=== PATIENT | female | born 1945 | race Caucasian/White ===

== ENCOUNTER 2020-04-23 17:51 | Emergency (ER) | payer MEDICARE, OTHER ==
[2020-04-23 19:00] LABS: Absolute Neutrophil Ct (ANC) 1.82 (1.4-6.9); BASOPHIL % 0.5 % (0.0-0.4); Basophil (Absolute #) 0.02 (0-0.4); Eosinophil % 4.8 % (0.00-5.0); Hematocrit 38.8 % (35-47); Hemoglobin 12.4 gm/dl (12.0-16.0); Lymphocyte (Absolute #) 1.73 (1.0-4.6); Lymphocytes % 41.1 % (24.0-44.0); Mean Cell Volume 94.6 fl (78-100); Mean Corpuscular Hemoglobin 30.2 pg (26-32); Mean Platelet Volume 11.2 fl (7.5-11.0); Monocyte (Absolute #) 0.44 (0.0-1.3); Monocytes % 10.5 % (0.0-12.0); Neutrophil % 43.1 % (36.0-66.0); Platelet Count 152 K/mm3 (150-450); Red Cell Distribution Width 12.5 % (11.5-14.0); White Blood Count 4.2 K/mm3 (4.0-10.5)
[2020-04-23 19:02] LABS: INR 1.1 (0.8-3.0); PROTIME 12.4 SECONDS (9.95-12.35)
[2020-04-23 19:04] LABS: PTT 29.1 SECONDS (25.3-37.0)
[2020-04-23 19:14] LABS: ALBUMIN 3.8 g/dL (3.5-5.0); ALKALINE PHOSPHATASE 76 U/L (38-126); ANION GAP 11.4 MEQ/L (5-15); BLOOD UREA NITROGEN 18 mg/dL (7-17); CHLORIDE 108 mmol/L (98-107); Calcium 9.2 mg/dL (8.4-10.2); Carbon Dioxide 24 mmol/L (22-30); Creatinine 1 0.86 mg/dL (0.52-1.04); EST GLOMERULAR FILTRATION RATE > 60.0 ML/MIN; Glucose 128 mg/dL (74-106); NT PRO BNP 156 pg/mL (0-1800); Potassium 3.9 mmol/L (3.5-5.1); SGOT/AST 28 U/L (14-36); SGPT/ALT 22 U/L (0-35); SODIUM 139 mmol/L (137-145); Total Protein 6.5 g/dL (6.3-8.2)
--- NOTE | 2020-04-23 19:29 | ERPHSYRPT ---
- History of Present Illness Source: patient Patient Subjective Stated Complaint: Abnormal labs Triage Nursing Assessment: Patient ambulated back to ED and transferred self to bed. Patient A+O X3. Patient's skin pink, warm and dry. Patient states she was called by Dr. Campbell due to elevated D Dimer. Patient denies pain or discomfort. Patient states she has been SOB for the past 3 years for unknown reason. Patient had recent blood work today and was told to come to ED for elevated D Dimer. lungs clear a/p valerie. Physician History: 74 yo wf sent to the ER by Dr. Campbell for CTA of chest after +DD today. Pt has a h/o DUE x2-3 years and has been worked up by pulmonology/cardiology for this problem. She has had a R MRM and L lumpectomy w radiation/chemo for breast Ca and has been getting dyspneic since her treatment. Pt had an ECHO today and has an appointment to see her superintendent pressure in AM. She denies cough/fever/CP/N/V/diaphoresis. Timing/Duration: other (2-3 yrs) Activities at Onset: activity Severity of Dyspnea-Max: moderate Severity of Dyspnea-Current: mild Possible Cause: chronic episodes Modifying Factors: Improves With: exertion Associated Symptoms: No anxiety, No cough, No chest pain/discomfort, No edema, No fever, No insomnia, No loss of appetite, No lightheadedness, No wheezing, No weakness, No ankle swelling, No chills, No hemoptysis, No calf pain, No dizziness, No heaviness, No heart racing, No lightheadedness, No leg swelling, No muscle spasms feet, No muscle spasms hands, No painful breathing, No productive cough, No sweating, No tightness, No tingling face Allergies/Adverse Reactions: indomethacin [From Indocin] Allergy (Verified 04/23/20 17:55) nickel Allergy (Verified 04/23/20 17:55) Hx Influenza Vaccination/Date Given: Yes Hx Pneumococcal Vaccination/Date Given: Yes Immunizations Up to Date: Yes Travel Risk - International Travel Have you traveled outside of the country in past 3 weeks: No - Coronavirus Screening Are you exhibiting any of the following symptoms?: No Close contact with a COVID-19 positive Pt in past 14-21 Days: No - Review of Systems Constitutional: No Symptoms Eyes: No Symptoms Ears, Nose, & Throat: No Symptoms Respiratory: No Symptoms, Dyspnea on Exertion (SCOTT) Cardiac: No Symptoms Abdominal/Gastrointestinal: No Symptoms Genitourinary Symptoms: No Symptoms Musculoskeletal: No Symptoms Skin: No Symptoms Neurological: No Symptoms Psychological: Suicidal Ideations Endocrine: No Symptoms Hematologic/Lymphatic: No Symptoms Immunological/Allergic: No Symptoms - Past Medical History Neurological History: No Pertinent History Cardiac History: Hypertension Respiratory History: Asthma, Bronchitis, COPD, Pneumonia Musculoskeletal History: Osteoarthritis Other Medical History: Hx of breast CA - Past Surgical History Past Surgical History: Yes Neuro Surgical History: No Pertinent History Cardiac: No Pertinent History Respiratory: No Pertinent History Gastrointestinal: Cholecystectomy Musculoskeletal: Orthopedic Surgery Female Surgical History: Tubal Ligation, Mastectomy, Lumpectomy Other Surgical History: Right sided masectomy, lumpectomy on left side, back and neck surgery - Social History Smoking Status: Never smoker Exposure to second hand smoke: No Drug Use: none Patient Lives Alone: Yes Significant Family History: no pertinent family hx - Female History Hx Last Menstrual Period: menopausal Hx Now: No - Nursing Vital Signs Nursing Vital Signs: Initial Vital Signs Temperature 97.8 F 04/23/20 17:56 Pulse Rate 66 04/23/20 17:56 Respiratory Rate 18 04/23/20 17:56 Blood Pressure 166/78 04/23/20 17:56 O2 Sat by Pulse Oximetry 98 04/23/20 17:56 Pain Scale Pain Intensity 0 - Physical Exam General Appearance: no apparent distress Eye Exam: PERRL/EOMI, eyes nml inspection Ears, Nose, Throat Exam: hearing grossly normal, normal ENT inspection, normal pharynx Neck Exam: normal inspection, non-tender, supple, full range of motion, No Brudzinski, No Kernig's, No meningismus, No carotid bruit Respiratory Exam: normal breath sounds, lungs clear, airway intact, No res piratory distress Cardiovascular/Chest Exam: normal heart sounds, regular rate/rhythm, normal peripheral pulses, No murmur Abdominal/Gastrointestinal Exam: soft, normal bowel sounds, No tenderness Rectal Exam: deferred Extremity Exam: non-tender, normal range of motion, normal inspection, normal capillary refill, no calf tenderness, no pedal edema Peripheral Pulses Exam: carotid (R): 2+, carotid (L): 2+ Neurologic Exam: alert, oriented x 3, cooperative, 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 as tested, normal mood/affect, nml cerebellar function, nml station & gait, sensation nml, No motor deficits, No sensory deficit Skin Exam: normal color, warm, dry, No rash Lymphatic Exam: No adenopathy SpO2 Interpretation: normal SpO2: 98 O2 Delivery: Room Air - Course EKG Interpreted by Me: RATE (NSR/R62/Prolonged QT-QTc/Non-specific T wave abnormalities/IRBBB) - CT Exams Chest CT Interpretation: Discussed w/radiologist (CTA of chest nothing acute) Ordered Tests: Active Orders 24 hr Category Date Time Status EKG-ER Only STAT Care 04/23/20 18:49 Completed CHEST WITH CONTRAST [CT] Stat Exams 04/23/20 18:50 Taken CBC W DIFF Stat Lab 04/23/20 18:57 Completed CMP Stat Lab 04/23/20 18:57 Completed NT PRO BNP Stat Lab 04/23/20 18:57 Completed PROTIME WITH INR Stat Lab 04/23/20 18:57 Completed PTT Stat Lab 04/23/20 18:57 Completed TROPONIN Q3H Lab 04/23/20 18:57 Completed TROPONIN Q3H Lab 04/23/20 22:00 Ordered Lab/Rad Data: Laboratory Result Diagrams 04/23/20 18:57 04/23/20 18:57 Laboratory Results 04/23/20 04/23/20 04/23/20 Range/Units 18:57 18:57 18:57 WBC (4.0-10.5) K/mm3 RBC (4.1-5.4) M/mm3 Hgb (12.0-16.0) gm/dl Hct (35-47) % MCV (78-100) fl MCH (26-32) pg MCHC (32-36) g/dl RDW (11.5-14.0) % Plt Count (150-450) K/mm3 MPV (7.5-11.0) fl Gran % (36.0-66.0) % Eos # (Auto) (0-0.5) Absolute Lymphs (auto) (1.0-4.6) Absolute Monos (auto) (0.0-1.3) Lymphocytes % (24.0-44.0) % Monocytes % (0.0-12.0) % Eosinophils % (0.00-5.0) % Basophils % (0.0-0.4) % Absolute Granulocytes (1.4-6.9) Basophils # (0-0.4) PT 12.4 H (9.95-12.35) SECONDS INR 1.10 (0.8-3.0) APTT 29.1 (25.3-37.0) SECONDS Sodium 139 (137-145) mmol/L Potassium 3.9 (3.5-5.1) mmol/L Chloride 108 H (98-107) mmol/L Carbon Dioxide 24 (22-30) mmol/L Anion Gap 11.4 (5-15) MEQ/L BUN 18 H (7-17) mg/dL Creatinine 0.86 (0.52-1.04) mg/dL Estimated GFR > 60.0 ML/MIN Glucose 128 H (74-106) mg/dL Calcium 9.2 (8.4-10.2) mg/dL Total Bilirubin 0.20 (0.2-1.3) mg/dL AST 28 (14-36) U/L ALT 22 (0-35) U/L Alkaline Phosphatase 76 (38-126) U/L Troponin I < 0.012 (0.000-0.034) ng/mL NT-Pro-B Natriuret Pep 156 (0-1800) pg/mL Serum Total Protein 6.5 (6.3-8.2) g/dL Albumin 3.8 (3.5-5.0) g/dL 04/23/20 Range/Units 18:57 WBC 4.2 (4.0-10.5) K/mm3 RBC 4.10 (4.1-5.4) M/mm3 Hgb 12.4 (12.0-16.0) gm/dl Hct 38.8 (35-47) % MCV 94.6 (78-100) fl MCH 30.2 (26-32) pg MCHC 32.0 (32-36) g/dl RDW 12.5 (11.5-14.0) % Plt Count 152 (150-450) K/mm3 MPV 11.2 H (7.5-11.0) fl Gran % 43.1 (36.0-66.0) % Eos # (Auto) 0.20 (0-0.5) Absolute Lymphs (auto) 1.73 (1.0-4.6) Absolute Monos (auto) 0.44 (0.0-1.3) Lymphocytes % 41.1 (24.0-44.0) % Monocytes % 10.5 (0.0-12.0) % Eosinophils % 4.8 (0.00-5.0) % Basophils % 0.5 (0.0-0.4) % Absolute Granulocytes 1.82 (1.4-6.9) Basophils # 0.02 (0-0.4) PT (9.95-12.35) SECONDS INR (0.8-3.0) APTT (25.3-37.0) SECONDS Sodium (137-145) mmol/L Potassium (3.5-5.1) mmol/L Chloride (98-107) mmol/L Carbon Dioxide (22-30) mmol/L Anion Gap (5-15) MEQ/L BUN (7-17) mg/dL Creatinine (0.52-1.04) mg/dL Estimated GFR ML/MIN Glucose (74-106) mg/dL Calcium (8.4-10.2) mg/dL Total Bilirubin (0.2-1.3) mg/dL AST (14-36) U/L ALT (0-35) U/L Alkaline Phosphatase (38-126) U/L Troponin I (0.000-0.034) ng/mL NT-Pro-B Natriuret Pep (0-1800) pg/mL Serum Total Protein (6.3-8.2) g/dL Albumin (3.5-5.0) g/dL - Progress Progress Note: 04/23/20 19:57 Pt has chronic dyspnea wo acute findings Counseled pt/family regarding: lab results, rad results - Departure Departure Disposition: Home Clinical Impression: Dyspnea Condition: Stable Critical Care Time: No Referrals: JEANETTE CAMPBELL DO [Primary Care Provider] - Instructions: Shortness of Breath (Dyspnea) (DC) Additional Instructions: Follow up with Dr. Campbell Return to ER for increasing shortness of breath or temperature greater than 100.5
[2020-04-23 19:48] VITALS: PULSE 61
[2020-04-23 20:06] VITALS: BP 159/83
[2020-04-23 20:41] VITALS: O2SAT 98
--- NOTE | 2020-04-24 09:40 | XRAY ---
Indication: Short of breath. Elevated d-dimer. Multiple contiguous axial images obtained through the chest using 80 cc Isovue 370 contrast and PE protocol. Comparison: None There is good opacification of the pulmonary arteries to include the lobar and segmental branches. No pulmonary embolus. Heart is borderline enlarged. Aorta is mildly arteriosclerotic without aneurysm/dissection. No pathologic mediastinal/hilar lymphadenopathy. 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 Collaterals eventually empty into the superior vena cava. The internal thoracic veins also demonstrates reflux of contrast into segment 2 of the liver. Lungs are inflated with scattered mild fibrosis/scarring bilaterally. No suspicious pulmonary mass/nodule, infiltrate, or effusion. Bony thorax intact with mild degenerative changes throughout the spine. There has been right mastectomy with a breast implant. Limited upper abdomen demonstrates cholecystectomy and hepatic/right renal cysts. Impression: 1. Negative pulmonary embolus. No acute cardiopulmonary abnormalities. 2. 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 3. Incidental right mastectomy with breast implant and hepatic/renal cysts. Comment: Brachycephalic vein occlusion not reported on my preliminary interpretation. I gave telephone report to Dr. Mast in the ER at 0931 hrs on April 24, 2020.
== END 2020-04-23 20:10 | disposition home or self-care (01) ==
LOC: ED 17:51
DX: R06.00 Dyspnea, unspecified (principal); I10 Essential (primary) hypertension; J44.9 Chronic obstructive pulmonary disease, unspecified
CPT/HCPCS: 36415; 71260; 80053; 83880; 84484; 85025; 85379; 85610; 85730; 93005; 93306; 99284

== ENCOUNTER 2020-09-23 08:51 | Day surgery (SDC) | payer MEDICARE, OTHER ==
[~2020-09-23 08:51] MED LIST: Lactated Ringers 1,000 ML IV SCH
[2020-09-23] MEDS ORDERED: Lactated Ringers 1,000 ML IV ONE (09:03)
[2020-09-23] MEDS ORDERED: DIPRIVAN 200 MG/20 ML IV ONE ×2 (10:56→11:05)
[2020-09-23] MEDS ORDERED: Xylocaine-Mpf 2% 5 Ml Vial ONE (11:05)
[2020-09-23 12:10] VITALS: BP 171/78; PULSE 65; O2SAT 93
--- NOTE | 2020-09-26 07:43 | OP ---
PROCEDURE DATE/TIME: 09/23/2020 1040 PREOPERATIVE DIAGNOSES: 1) Epigastric pain. 2) Reflux. 3) Hiatal hernia. 4) History of pancreatitis. POSTOPERATIVE DIAGNOSES: 1) Epigastric pain. 2) Reflux. 3) Hiatal hernia. 4) History of pancreatitis. 5) Mild gastritis. 6) Esophageal benign inlet path. 7) Second portion of duodenum mass. PROCEDURE: EGD with biopsies and tattoo. PROCEDURE PERFORMED BY: Angela Lowe M.D. ESTIMATED BLOOD LOSS: Minimal. ANESTHESIA: MAC. SPECIMENS: 1) Antral biopsy. 2) Distal esophagus biopsy. 3) Raised mass at D2 biopsy. COMPLICATIONS: None. HISTORY: This is a patient who presents with a history of pancreatitis, epigastric pain, reflux and hiatal hernia here for EGD. The patient was seen preoperatively. H&P reviewed with her and confirmed. DESCRIPTION OF PROCEDURE: She was then brought back to the endoscopy suite. She was laid in the left lateral decubitus position. A complete time out performed. The scope gently introduced into the mouth, oropharynx, down to the esophagus, stomach and duodenum. In the region of her second portion of the duodenum, there was a very small, raised lesion this was white, minimally raised only approximately 2 mm in size this was very definitively biopsied with a good specimen obtained and it was sent to pathology. The site looked hemostatic after biopsy. The biopsy itself almost completely removed the lesion. I did then place tattoo dye here to insure that we could re-identify the location pending the final pathology report. The tattoo was placed without difficulty. The scope was carefully withdrawn taking a good look at the remainder of the duodenum. There were no other masses in the duodenum. In the stomach the patient did have some mild gastritis. An antral biopsy was taken to rule out Helicobacter pylori this site looked hemostatic. On retroflex view she does have a small hiatal hernia as well which is visualized and consistent with her reflux symptoms. No mass in the stomach. The scope was then further withdrawn into her esophagus. Again her hiatal hernia visualized. She does have some reflux changes here. I did do distal esophageal biopsies to rule out Multani's disease due to the reflux changes. These were hemostatic and then scope was further withdrawn. She had a benign inlet patch at the entrance of her esophagus without complication. There were no further lesions. The patient tolerated the procedure very well. No immediate complications. She is going to be following up with me as an outpatient. I recommend an EGD in approximately three months to review our tattoo site and we will also follow up on the pathology for this.
== END 2020-09-23 12:24 | disposition home or self-care (01) ==
LOC: SDC 08:51
PROVIDERS: ATTEND Surgery
DX: R10.13 Epigastric pain (principal); K21.9 Gastro-esophageal reflux disease without esophagitis; Z79.899 Other long term (current) drug therapy; K29.70 Gastritis, unspecified, without bleeding; K44.9 Diaphragmatic hernia without obstruction or gangrene; Z87.19 Personal history of other diseases of the digestive system; K31.9 Disease of stomach and duodenum, unspecified; Z86.39 Personal history of other endocrine, nutritional and metabolic disease; Q39.8 Other congenital malformations of esophagus
CPT/HCPCS: 88305; 99100; J2704

== ENCOUNTER 2020-11-25 08:48 | Day surgery (SDC) | payer MEDICARE, OTHER ==
[2020-11-25] MEDS ORDERED: DIPRIVAN 200 MG/20 ML IV ONE (12:13)
[2020-11-25 15:12] VITALS: O2SAT 97
[2020-11-25 15:15] VITALS: BP 160/99; PULSE 53
--- NOTE | 2021-01-15 15:36 | OP ---
PROCEDURE DATE/TIME: 11/25/2020 1217 PREOPERATIVE DIAGNOSES: 1) Duodenal mass. 2) Epigastric pain. 3) Hiatal hernia. 4) Reflux disease. POSTOPERATIVE DIAGNOSES: 1) Benign appearing duodenal lesion. 2) Hiatal hernia. 3) Gastroesophageal reflux disease. 4) Benign appearing esophageal lesion. 5) Mild esophageal varices. 6) Mild gastritis. PROCEDURE: EGD with biopsy. PROCEDURE PERFORMED BY: Angela Lowe M.D. ESTIMATED BLOOD LOSS: Minimal. COMPLICATIONS: None. ANESTHESIA: MAC. SPECIMEN: Site of previously biopsied duodenal mass, gastric antrum, distal esophagus and esophageal lesion at 32 cm. HISTORY: This is a patient who presents for EGD. She has been having continued epigastric pain. She also has a known hiatal hernia, duodenal mass that looked benign on initial biopsy and she has known reflux disease. Risks, benefits, alternatives regarding EGD has been discussed with her preoperatively. Her H&P and consent have all been reviewed and confirmed. She was seen personally. DESCRIPTION OF PROCEDURE: She was then brought back to the endoscopy suite, laid in the left lateral decubitus position. A complete time out was performed. The scope gently introduced into the mouth, oropharynx and down in the esophagus, stomach and duodenum. In the duodenum, the patient's prior site of a small white-appearing lesion was clearly identified, this lesion has been partially removed by her previous biopsy. I took further biopsies at this same site. I also identified the tattoo near this site here. The residual site looked completely removed with biopsy so essentially the entire duodenal lesion that was identified on the first scope has been completely removed and this does look benign. I do not see any growth, any concerning features, it all looks clinically benign this was sent to pathology. The tattoo remains. The scope is then carefully withdrawn to insure that this was hemostatic, that the lesion was completely removed. Everything looked good here. The rest of the duodenum is okay that is able to be visualized. In the stomach, the patient does have some mild gastritis. We re-biopsied her for Helicobacter pylori, taking cold forceps biopsies in the antrum secondary to her symptoms. These sites were hemostatic. We then carefully retroflexed the scope and then withdrew the scope. There were no other concerning findings. Her gastroesophageal junction is at about 38 to 39 cm. There was a small sliding hiatal hernia. There was one area at her gastroesophageal junction that looked like a squamous island and this was biopsied and sent to rule out Multani's disease, this was done with cold forceps. Site hemostatic. There was one squamous-appearing small, benign lesion in her esophagus at 32 cm which was biopsied and fully removed with cold forceps biopsies. Site was hemostatic and this was sent to pathology. She also had two small esophageal varices that flattened with insufflation and these were very minor. The scope was then completely removed. The patient tolerated the procedure very well. There were no complications. She is going to be following up with me as an outpatient. I have discussed her instructions and results preliminarily. She will follow up to obtain her final pathology and to recheck her symptoms.
== END 2020-11-25 13:55 | disposition home or self-care (01) ==
LOC: SDC 08:48
PROVIDERS: ATTEND Surgery
DX: D13.0 Benign neoplasm of esophagus (principal); R10.13 Epigastric pain; K44.9 Diaphragmatic hernia without obstruction or gangrene; K21.9 Gastro-esophageal reflux disease without esophagitis; K29.70 Gastritis, unspecified, without bleeding; I85.00 Esophageal varices without bleeding; I10 Essential (primary) hypertension; Z79.899 Other long term (current) drug therapy
CPT/HCPCS: 88305; 93005; 99100; J2704

== ENCOUNTER 2024-11-27 11:00 | Day surgery (SDC) | payer MEDICARE, OTHER ==
[2024-11-27] MEDS ORDERED: Lactated Ringers 1,000 ML IV ONE (11:07)
[2024-11-27 11:51] LABS: Calcium 8.7 mg/dL (8.4-10.2); Carbon Dioxide 27.0 mmol/L (22-30); Creatinine 1 0.65 mg/dL (0.52-1.04); EST GLOMERULAR FILTRATION RATE 88.4 ML/MIN; Glucose 101.0 mg/dL (74-106); Potassium 3.7 mmol/L (3.5-5.1)
[2024-11-27] MEDS: Lactated Ringers 1,000 ML IV SCH (12:41)
[2024-11-27] MEDS ORDERED: propofoL IV ONE ×2 (12:53→13:09)
[2024-11-27] MEDS ORDERED: Xylocaine-Mpf 2% 5 Ml Vial ONE (12:53)
[2024-11-27 14:27] VITALS: RESP 16; O2SAT 94
[2024-11-27 14:34] LABS: SGOT/AST 27.0 U/L (14-36); SGPT/ALT 24.0 U/L (0-35); Total Protein 6.3 g/dL (6.3-8.2)
[2024-11-27 14:46] VITALS: BP 126/88; PULSE 58; TEMP 97.5
--- NOTE | 2024-11-28 17:22 | OP ---
SURGERY DATE/TIME: 11/27/2024 1303 - 1312 PREOPERATIVE DIAGNOSES: 1) Dysphagia. 2) Reflux. 3) History of hiatal hernia. POSTOPERATIVE DIAGNOSES: 1) Small hiatal hernia, sliding type. 2) Gastroesophageal reflux disease. 3) Gastritis. 4) Minimal duodenal bulb duodenitis. 5) Cervical esophageal varices. PROCEDURE: Esophagogastroduodenoscopy with biopsies. SURGEON: Angela Lowe MD. ANESTHESIA: MAC. ESTIMATED BLOOD LOSS: Minimal. COMPLICATIONS: None. SPECIMENS: Gastric antrum, rule out H pylori. INDICATIONS: This is a patient who presents with multiple upper GI complaints including dysphagia and reflux. She also has a history of a hiatal hernia. She understands the EGD procedure, the risks, benefits, and alternatives, and she would like to proceed. Her consent and H and P have all been completed by me preoperatively and all questions answered to her satisfaction. DESCRIPTION OF PROCEDURE AND FINDINGS: She was then brought back to the endoscopy suite and laid in the left lateral decubitus position. The scope was then gently inserted into the mouth, oropharynx, down to the esophagus, stomach, and into the proximal duodenum to approximately the second portion. There was very minimal duodenitis noted only in the bulb. The remainder of the first portion and the visualized second portion were normal. The scope was carefully withdrawn back into the stomach. The patient does have gastritis throughout her stomach which is diffuse with erythema. On retroflexed view, she does have a small hiatal hernia as expected with her history. I do not see any other masses of concern. She has very minimal, benign, tiny gastric polyps. We then took cold forceps biopsies in the antrum to rule out H pylori. This site was hemostatic. The scope was withdrawn back to the level of the hiatus. Again, a small hiatal hernia visualized here. The scope was then further withdrawn and the remainder of the esophagus had very nice mucosa. There are no strictures and nothing of concern in the esophagus, except for a small esophageal varix in the cervical esophagus. No varices elsewhere. The scope was then fully removed. The patient tolerated the procedure well. I have given her Carafate and will continue her PPI due to moderate gastritis. I have also ordered labs while she is here due to the noted varices. She will be following up with me as an outpatient for final pathology results and then to discuss further testing. I did recommend we workup her liver due to the varix that was noted. I have also discussed with her family diet and lifestyle changes, and her medications due to the reflux and the gastritis. Plan for EGD will be on an as-needed basis.
== END 2024-11-27 15:06 | disposition home or self-care (01) ==
LOC: SDC 11:00
PROVIDERS: ATTEND Surgery
DX: K29.70 Gastritis, unspecified, without bleeding (principal); R13.10 Dysphagia, unspecified; K21.9 Gastro-esophageal reflux disease without esophagitis; Z87.19 Personal history of other diseases of the digestive system; K44.9 Diaphragmatic hernia without obstruction or gangrene; K29.80 Duodenitis without bleeding; I85.00 Esophageal varices without bleeding